=== PATIENT | female | born 1990 | race Caucasian/White ===

== ENCOUNTER → 2016-08-11 | Outpatient (CLI) | payer MEDICAID ==
[~2016-08-11] MED LIST: DILAUDID2 M1 PO; FERGON240 MG PO; MOTRIN 400MG.400 MG PO; MOTRIN400 MG PO; PERCOCET 5/3251 EACH PO; PRENATAL PLUS1 TA1 PO; TUMS 400MG TAB400 MG PO
--- NOTE | 2016-08-11 14:57 | RADIOLOGY REPORT PS360 ---
US TRANSVAGINAL PREG HISTORY: OB DATES ORDERING PHYSICIAN: Joseph Rossi MD PATIENT AGE: 26 years COMPARISON: None FINDINGS: An intrauterine gestational sac is present with a pole with a crown-rump length of 3.28 cm correlating to gestational age of 10 weeks 2 days. heart tones are present with an FHR of 151 bpm's. Yolk sac is noted. The amnion and chorion have not yet fused. Adnexa: 2 similar left ovarian cyst. Small amount fluid in the cul-de-sac. Right ovary has an unremarkable appearance.. IMPRESSION: Live intrauterine gestation at 10 weeks 2 days
== END ==
LOC: RAD 10:22
DX: O26.841 Uterine size-date discrepancy, first trimester (principal)

== ENCOUNTER → 2017-02-15 | Outpatient (CLI) | payer MEDICAID | LOC: LAB 17:38 | DX: Z34.80 Encounter for supervision of other normal pregnancy, unspecified trimester (principal) ==

== ENCOUNTER 2017-03-01 00:31 | Inpatient (IN) | payer MEDICAID ==
[~2017-03-01] VITALS: Ht 160 cm; Wt 95.0 kg
[2017-03-01 06:28] VITALS: BP 114/72
[2017-03-01 07:01] LABS: LYMPH # 2.7 K/mm3 (0.7-4.5); LYMPH % 20.3 % (10-50.0)
[2017-03-01 07:09] LABS: ABO BLOOD TYPE A; RH BLOOD TYPE POSITIVE
[2017-03-01 07:12] LABS: HEMOGLOBIN 11.4 g/dL (12.2-16.2)
--- NOTE | 2017-03-01 08:33 | Operative Note ---
Procedure/Operative Record Procedure Date of procedure: 03/01/17 Pre-Op Dx: Term , previous section, desire for sterilization Post-Op Dx: Term , previous section, desire for sterilization Procedure performed: Repeat lower segment transverse section and bilateral salpingectomy Surgeon: Dr. Joseph Rossi Ring Striker(s): Araceli Salvador Anesthesia: Sarkis Carrion EBL (ml): 600 Clinical note: She is a 26-year-old 4 now para 3 aborta 1 who was 39+ weeks gestational age. She's had 2 previous sections and as result of that was offered repeat lower segment transverse section at term. She also expressed a desire for sterilization. The risks and benefits of bilateral salpingectomy were discussed with the patient. The irreversibility of bilateral salpingectomy was discussed with the patient as well. Operative findings: She delivered a live-born female child at 7:49 AM on the morning of March 01, 2017. The baby weighed 6 lbs. 13 oz. and was 20 inches long. She had Apgars of 9 at 1 minute and 9 at 5 minutes. PH was 7.44. Ovaries and tubes appeared normal. Operative note: She was taken to the operating room where epidural anesthesia was found be adequate. She was prepped and draped in normal sterile fashion in the supine position with a leftward tilt. A Rosa catheter was in the bladder. A Pfannenstiel skin incision was made with knife then carried through to the underlying layer of fascia with cautery. The fascia was opened in the midline with cautery and extended laterally using Leyva scissors. [place] clamps were applied to the superior aspect of the fascial incision which was tented up and the underlying rectus muscles dissected off using cautery. The [place] clamps were then applied to the inferior aspect of the fascial incision which in a similar fashion was tented up and the underlying rectus muscles dissected off using cautery. The rectus muscles were then in the midline, the peritoneum identified, and entered sharply with Metzenbaum scissors. This incision was then extended superiorly and inferiorly with cautery. We had good visualization of the bladder inferiorly. The bladder peritoneum was then opened in the midline and extended laterally using Metzenbaum scissors. A bladder flap was created digitally. The lower blade of the Angelica was inserted so as to push the bladder out of the way. Transverse incision was made through the uterine muscle to the amnion. This incision was then extended laterally using fingers traction. The amnion was entered sharply with knife. The 's head was then delivered atraumatically. This was followed by the anterior shoulder and the rest of the infant's body atraumatically. The oropharynx and nasopharynx were bulb suctioned. The infant was then handed off to Dr. Vogt who assigned Apgars of 9 at 1 minute and 9 at 5 minutes. We then obtained cord blood as well as cord pH. The pH was 7.44. Using gentle traction on the cord and countertraction on the fundus I was able to easily deliver the placenta intact. It had a normal three-vessel cord. The uterus was then cleared of clots and debris and exteriorized from the abdominal cavity. A sponge forcep was passed through the cervix to allow drainage. The uterine incision was then closed using running 0 Vicryl suture in a locked fashion. A second layer of the same suture was used to imbricate the first layer. The bladder peritoneum was then closed using running 2-0 Vicryl suture in a locked fashion. We then grasped the RIGHT tube with a Thais and cut across the tube approximately 1 cm from the uterus. Then using the blade of the cautery I cauterized along the meso salpinx. The tube was removed. This was similarly performed on the patient's LEFT side. There was some bleeding on the posterior fundus of the uterus and [id number] sutures were used here to obtain excellent hemostasis. The gutters and cul-de-sac were then cleared of clots and debris and the uterus was returned the abdominal cavity. Once again hemostasis was assured. I LEFT a large piece of Surgicel on the posterior aspect of the uterus to ensure that the bleeding was completely controlled. The peritoneum was grasped with [place] clamps and closed using running 2-0 Vicryl suture. The rectus muscles were then reapproximated using running 0 Vicryl suture. The fascia was closed using running #1 Vicryl suture. The subcutaneous tissues were then irrigated with warm water followed by closure Navin's fascia using running 2-0 Monocryl suture. The skin was closed with keith. The incision was then cleaned with warm saline and also cleansed with Hibiclens. Sterile dressings were applied. She tolerated the procedure well and was taken to the recovery room in excellent condition. All sponges minute and needle counts were correct. Estimate a blood loss was approximately 600 mL. Conplications: None Specimens: Products of conception, bilateral fallopian tubes at [id number]
--- NOTE | 2017-03-01 08:36 | Anesthesia Record ---
Anesthesia Record Part I Total IV fluids: 1800 EBL (ml): 600 Urine Output: 200 B/P: 118/58 % SaO2: 98 Pulse: 88 Resps: 12 Temp: 98.2 Patient is: Awake, Stable Stable to PACU at: 0830 at 0835
--- NOTE | 2017-03-01 08:36 | Anesthesia Record ---
Anesthesia Record Part II Discharge time: 09 Destination: OB PACU nurse assessment review? Yes Patient is: Awake, Stable Anesthesia complications? No at 0836
[2017-03-01 08:54] LABS: AMPHETAMINES/METAMPHETAMINES NEGATIVE ng/mL (<1000)
[2017-03-01 09:11] LABS: URINE BILIRUBIN - DIPSTICK NEGATIVE (NEG); URINE BLOOD NEGATIVE (NEG)
[2017-03-01 09:16] VITALS: BP 90/54
[2017-03-01 20:36] VITALS: BP 100/62
[2017-03-02 07:13] LABS: HEMOGLOBIN 10.4 g/dL (12.2-16.2)
--- NOTE | 2017-03-02 07:57 | ACUTE CARE PROGRESS NOTE (QUA) ---
Progress Notes Subjective Date 03/02/17 Time 0756 Note She is doing well this morning. Her pain is reasonably well-controlled but we will change her pain medicine. She seemed to do better with IV hydromorphone rather than oral Percocet. She is eating and drinking and ambulating. Her lochia is normal. She is breast-feeding. Patient/family reports: feeling better, pain Objective Findings Last VS-Temp:98.0 B/P:100/62 Pulse:72 Resp:20 SaO2:98 ROOM AIR Last weight lbs:209 oz:8 K.029 Method:Floor Scales Laboratory Tests 03/02/17 0630: Hgb 10.4 L, Hct 30.8 L Exam General appearance: normal appearance, alert, awake, no acute distress Reviewed: vital signs, lab results Assessment/Plan Problem List 1. Deliveries by Status: Acute 2. Single live Status: Acute Patient condition Improving, Stable Plan: continue current care, make medication changes This inpt stay is expected to cross 2 MNs from start of care Yes Comments: She is doing well this morning. We will keep her for another 48 hours. We will change to oral hydromorphone. at 0750
[2017-03-02 08:19] VITALS: BP 110/58
[2017-03-02 20:09] VITALS: BP 126/63
[2017-03-03 08:51] VITALS: BP 104/58
--- NOTE | 2017-03-03 09:43 | ACUTE CARE PROGRESS NOTE (QUA) ---
Progress Notes Subjective Date 03/03/17 Time 0942 Note She is doing well this morning. She is eating and drinking and ambulating. She is breast-feeding. Her lochia is normal. Her pain is reasonably well-controlled. Patient/family reports: feeling better, no complaints Objective Findings Last VS-Temp:98.4 B/P:126/63 Pulse:90 Resp:18 SaO2:98 ROOM AIR Last weight lbs:209 oz:8 K.029 Method:Floor Scales Exam General appearance: normal appearance, alert, active, no acute distress Reviewed: vital signs, lab results Assessment/Plan Problem List 1. Deliveries by Status: Acute 2. Single live Status: Acute Patient condition Improving, Stable Plan: continue current care This inpt stay is expected to cross 2 MNs from start of care Yes Comments: She is doing very well and we will plan to send her home tomorrow. at 0943
[2017-03-03 19:45] VITALS: BP 103/50
[2017-03-04 07:41] VITALS: BP 100/59
[2017-03-04] MEDS ORDERED: HYDROMORPHONE2 MG PO (07:57)
--- NOTE | 2017-03-04 09:42 | ACUTE CARE PROGRESS NOTE (QUA) ---
Progress Notes Subjective Date 03/04/17 Time 0941 Note She is doing very well. She is eating and drinking and ambulating. She is breast -feeding. Her lochia is normal. Her pain is well-controlled. Patient/family reports: feeling better, no complaints Objective Findings Last VS-Temp:98.0 B/P:103/50 Pulse:67 Resp:18 SaO2:98 ROOM AIR Last weight lbs:209 oz:8 K.029 Method:Floor Scales Exam General appearance: normal appearance, alert, awake, no acute distress Reviewed: vital signs, lab results Assessment/Plan Problem List 1. Deliveries by Status: Acute 2. Single live Status: Acute Patient condition Improving, Stable Plan: continue current care, initiate discharge plan This inpt stay is expected to cross 2 MNs from start of care Yes Comments: She is doing very well today. We will plan to send her home. at 0942
--- NOTE | 2017-03-04 09:52 | Discharge Summary ---
Discharge Summary Admission date: 03/01/17 Discharge date: 03/04/17 Discharge diagnoses: Term , previous section, desire for sterilization Clinical note: She is a 26-year-old 3 now para 3 who is had 2 previous sections. She also expressed desire for sterilization. She was brought in for repeat lower segment transverse section and bilateral salpingectomy. Course in hospital: On March 01, 2017 she had a repeat lower segment transverse section and bilateral salpingectomy. She delivered a live-born female child at 7:49 AM on the morning of March 01, 2017. The baby weighed 6 lbs. 13 oz., was 20 inches long and had Apgars of 9 at 1 minute and 9 at 5 minutes. She has done well postoperatively and has remained afebrile throughout her hospitalization. She is eating and drinking and ambulating. She is breast-feeding. Her pain is well- controlled. She has a positive blood, she is rubella immune and is group B streptococcus negative. Laboratory Tests 03/01/17 0545: Opiates Screen NEGATIVE, Urine Methadone Screen NEGATIVE, Barbiturates NEGATIVE, Phencyclidine Screen NEGATIVE, Amphetamines Screen NEGATIVE, Benzodiazepines Screen NEGATIVE, Cocaine Screen NEGATIVE, Marijuana (THC) Screen NEGATIVE 03/01/17 0605: Sodium 138, Potassium 3.8, Chloride 105, Carbon Dioxide 21, BUN 8, Creatinine 0.6, Estimated Creat Clear 211, Estimated GFR (MDRD) 120, Glucose 84, Calcium 8.9, WBC 13.1, RBC 3.93, MCV 84.3, RDW 14.0, Plt Count 212, MPV 7.8, Gran % 72.4 , Gran # 9.5, Lymphocytes % 20.3, Monocytes % 5.3, Eosinophils % 1.8, Basophils % 0.2, Lymphocytes # 2.7, Monocytes # 0.7, Eosinophils # 0.2, Basophils # 0.0, PUBS MCHC 34.0, Antibody Screen NEGATIVE, Miscellaneous Test POSITIVE 03/01/17 0605: MCH 28.7 03/01/17 0733: Urine Color YELLOW, Urine Appearance CLEAR, Urine pH 7.0, Ur Specific [place] <= 1.005, Urine Protein NEGATIVE, Urine Ketones NEGATIVE, Urine Blood NEGATIVE, Urine Nitrate NEGATIVE, Urine Bilirubin NEGATIVE, Urine Urobilinogen 0.2, Ur Leukocyte Esterase NEGATIVE, Urine RBC NONE, Urine WBC NONE, Ur Squamous Epith Cells NONE, Urine Bacteria NONE, Urine Glucose NEGATIVE 03/01/17 0750: Cord Blood pH 7.44 03/02/17 0630: Hgb 10.4, Hct 30.8 Plans for ongoing care: She is discharged home to follow-up with me in approximately 2 weeks' time. Discharge medications She will continue with her vitamins and iron. She was given a prescription for hydromorphone 2 mg take 1 tablet every 4 hours as needed for pain. She will also take [id number] anti-inflammatories. DC/follow-up instructions She was given the usual instructions with respect to limiting her activity, driving and sexual activity. She was given instructions with respect to wound care. Condition at discharge Stable and improved at 0989
== END 2017-03-04 13:30 | disposition home or self-care (01) | DRG 766 ==
LOC: OB 00:31 → EDSTATUS 07:30 → OB 07:30 → SDC 07:30 → OB 03-04 13:30
PROVIDERS: Nurse Practitioner Obstetrics & Gynecology
PROC: 0UT70ZZ Resection of Bilateral Fallopian Tubes, Open Approach (ICD-10-PCS; 2017-03-01)
PROC: 10D00Z1 Extraction of Products of Conception, Low, Open Approach (ICD-10-PCS; principal; 2017-03-01 07:30)
DX: O65.5 Obstructed labor due to abnormality of maternal pelvic organs (principal); N85.8 Other specified noninflammatory disorders of uterus; O34.211 Maternal care for low transverse scar from previous cesarean delivery; Z3A.39 39 weeks gestation of pregnancy; Z37.0 Single live birth; Z30.2 Encounter for sterilization
CPT/HCPCS: J2405